=== PATIENT | male | born 1990 | race Caucasian/White ===

== ENCOUNTER 2021-04-19 08:00 | Outpatient (CLI) | payer OTHER | END 2021-04-19 23:59 | disposition home or self-care (01) | LOC: LAB.N 08:00 | PROVIDERS: ATTEND Nurse Practitioner | DX: R07.0 Pain in throat (principal); R05 Cough; Z20.822 Contact with and (suspected) exposure to COVID-19 | CPT/HCPCS: 87070 ==

== ENCOUNTER 2021-04-19 13:14 | Outpatient (CLI) | payer OTHER ==
--- NOTE | 2021-04-19 16:30 | XRAY Report ---
PROCEDURE: Chest 2 View X-Ray INDICATIONS: ACUTE UPPER RESPIRATORY INFECTION TECHNIQUE: 2 view(s) of the chest. COMPARISON: None. FINDINGS: Surgical changes and devices: None. Lungs and pleura: No pleural effusions or pneumothorax. Lungs are clear. Mediastinum: Mediastinal contours are normal. Heart size is normal. Bones and chest wall: No suspicious bony abnormalities. Soft tissues appear unremarkable. IMPRESSION: Unremarkable chest plain films, without focal infiltrates. Reviewed by: Josué Rosenberg MD on 04/19/2021 3:29 PM [email or web address] Approved by: Josué Rosenberg MD on 04/19/2021 3:29 PM TITO Station ID: [id number]
== END 2021-04-19 13:15 | disposition home or self-care (01) ==
LOC: DI.N 13:14
PROVIDERS: ATTEND Nurse Practitioner
DX: J06.9 Acute upper respiratory infection, unspecified (principal)

== ENCOUNTER 2022-04-05 19:59 | Emergency (ER) | payer OTHER ==
[2022-04-05] MEDS ORDERED: HYDROcod/ACET 5/325 Prepack 4 PO STA (20:05)
[2022-04-05] MEDS ORDERED: AMOX/CLAV 875 MG/125 MG TABLET PO STA (20:05)
--- NOTE | 2022-04-05 20:07 | ED Physician Documentation ---
PD HPI HEENT - Stated complaint Stated Complaint: EAR PX - History obtained from History obtained from: Patient - Additional information Additional information: Sudden severe ear pain while [place] diving a couple of days ago which has since w orsened. [place] but no clear diagnosis it sounds like. His hearing is severely diminished in that ear. Review of Systems Constitutional: reports: Reviewed and negative Nose: reports: Reviewed and negative Respiratory: reports: Reviewed and negative PD PAST MEDICAL HISTORY - Present Medications Home Medications: Ambulatory Orders Medication Instructions Recorded Confirmed Amox/Clav 875/125 [Augmentin] 1 each PO Q12H #20 tablet 04/05/22 PD ED PE NORMAL - Vitals Vital signs reviewed: Yes - General General: Alert and oriented X 3, No acute distress - HEENT HEENT: Other (Severe right otitis media. I do not appreciate a rupture, left TM is a bit red as well but not bulging.) - Neuro Neuro: Alert and oriented X 3, Normal speech - Psych Psych: Normal mood, Normal affect Departure - Departure Disposition: 01 Home, Self Care Clinical Impression: ROM (right otitis media) Condition: Good Instructions: ED Otitis Media Acute Adult Prescriptions: Amox/Clav 875/125 [Augmentin] 1 each PO Q12H #20 tablet Comments: You are seen today for right-sided ear infection. For this I am prescribing oral antibiotics. He is fine to take the decongestant that your doctor recommended as well. Return for new or worsening symptoms. Follow-up with him or her in a week's time for recheck. Return if worse.
[2022-04-05 20:13] VITALS: BP 129/87
== END 2022-04-05 20:22 | disposition home or self-care (01) ==
LOC: ED 19:59
DX: H66.91 Otitis media, unspecified, right ear (principal)
CPT/HCPCS: 99282; 99283; A9270

== ENCOUNTER 2024-01-03 01:09 | Emergency (ER) | payer OTHER ==
--- NOTE | 2024-01-03 01:26 | ED Physician Documentation ---
History of Present Illness - Stated complaint Stated Complaint: R SIDE PX - History obtained from History obtained from: Patient - Additonal information Additional information: Patient is a 33-year-old male without any significant medical history presenting for evaluation of right-sided chest wall pain. Patient states while in [facility] he fell onto a person's foot and has been having pain since then. This happened just a few hours ago. He was having trouble sleeping prompting him to come to the emergency department. He did take ibuprofen 600 mg earlier. Pain is worse with movements. Review of Systems Constitutional: denies: Fever Cardiac: reports: Chest pain / pressure (R rib) Respiratory: denies: Dyspnea PD PAST MEDICAL HISTORY - Past Medical History Psych: Anxiety - Past Surgical History Past Surgical History: No - Present Medications Home Medications: Ambulatory Orders Medication Instructions Recorded Confirmed Lidocaine Patch 5% [Lidoderm Patch] 1 patch TOP DAILY PRN #10 patch 01/03/24 - Allergies Allergies/Adverse Reactions: Allergies Allergy/AdvReac Type Severity Reaction Status Date / Time No Known Drug Allergies Allergy Verified 01/03/24 01:27 - Social History Does the pt smoke?: Yes Smoking Status: Current every day smoker Does the pt drink ETOH?: Yes - Immunizations Immunizations are current?: Yes - POLST Patient has POLST: No PD ED PE NORMAL - General General: Alert and oriented X 3, No acute distress, Well developed/nourished - HEENT HEENT: Atraumatic - Neck Neck: Supple, no meningeal sign - Cardiac Cardiac: RRR, Other (Right lower lateral chest wall tenderness, no bruising, no crepitus,) - Respiratory Respiratory: No respiratory distress, Other - Abdomen Abdomen: Normal bowel sounds, Soft, Non tender, Non distended - Derm Derm: Warm and dry - Neuro Neuro: Normal speech Results - Vitals Vitals: Vital Signs - 24 hr 01/03/24 01:20 Temperature 36.4 C L Heart Rate 82 Respiratory 17 Rate Blood Pressure 145/98 H O2 Saturation 99 Oxygen O2 Source Room air PD Medical Decision Making - ED course Complexity details: reviewed results, d/w patient ED course: Pt with R sided rib pain after fall. VSS. No visible signs of trauma. Chest XR which I reviewed is negative for obvious rib fracture or pneumothorax. Pt was given a lidocaine patch here and declines narcotic pain medication. Counseled on need for follow up if symptoms are not improving and advised on concerning symptoms to return for. Departure - Departure Disposition: 01 Home, Self Care Clinical Impression: Contusion of rib on right side Condition: Stable Instructions: ED Contusion Rib Prescriptions: Lidocaine Patch 5% [Lidoderm Patch] 1 patch TOP DAILY PRN #10 patch PRN Reason: pain Comments: Your chest x-ray does not show any signs of a broken rib or collapsed lung. Occasionally we can miss rib fractures on chest x-rays. Please continue with acetaminophen or ibuprofen as needed for pain as well as lidocaine patches. I sent a prescription for lidocaine patches to the [facility] pharmacy in [place]. Please have close follow-up with your primary care provider if your symptoms or not improving. Return to the ER with any worsening such as difficulty with breathing. IMPRESSION: No visualized acute fracture or dislocation. However, occult injury cannot be excluded. Recommend short interval imaging follow-up in 7-10 days as clinically indicated for additional evaluation. Forms: PCP List Discharge Date/Time: 01/03/24 02:19
[2024-01-03 01:31] VITALS: BP 145/98; O2SAT 99
[2024-01-03] MEDS: LIDOCAINE PATCH 5% TOP STA (01:44)
--- NOTE | 2024-01-03 01:51 | XRAY Report ---
PROCEDURE: Ribs w/PA Chest 3+V RT INDICATIONS: injury during juijitsu/pain TECHNIQUE: 2 views of the ribs were acquired, along with a single view chest. COMPARISON: Chest x-ray 04/19/2021 FINDINGS: Surgical changes and devices: None. Bones and chest wall: No fractures or dislocations. No suspicious bony lesions. Overlying soft tis sues appear unremarkable. Lungs and pleura: No pleural effusions or pneumothorax. Lungs appear clear. Mediastinum: Mediastinal contours appear normal. Heart size is normal. IMPRESSION: No visualized acute fracture or dislocation. However, occult injury cannot be excluded. Recommend gale rt interval imaging follow-up in 7-10 days as clinically indicated for additional evaluation. Reviewed by: Dee Farris MD on 01/03/2024 1:50 AM PDT Approved by: Dee Farris MD on 01/03/2024 1:50 AM PDT Station ID: [id number]
== END 2024-01-03 02:19 | disposition home or self-care (01) ==
LOC: ED 01:09
DX: S20.211A Contusion of right front wall of thorax, initial encounter (principal); W18.39XA Other fall on same level, initial encounter; Y93.75 Activity, martial arts; F17.200 Nicotine dependence, unspecified, uncomplicated
CPT/HCPCS: 71101; 99283; A9270